=== PATIENT | male | born 1960 | race Caucasian/White ===

== ENCOUNTER → 2018-02-26 | Outpatient (CLI) | payer MEDICARE ==
--- NOTE | 2018-02-27 13:37 | RSPPFT ---
DATE OF PROCEDURE: 02/26/18 COMMENTS: Spirometry with FVC of 4.2 predicted 4.2, FEV1 of 3.0 predicted 3.4, FEV1/FVC ratio 71% predicted 80%. Air trapping is present with RV at 2.7 predicted 2.1. Airways resistance is increased to 3.9 predicted 1.2. IMPRESSION: On the basis of the above, patient has maintained FEV1/FVC ratio but increased airways resistance and air trapping implies that patient may have a mild obstructive lung defect.
== END ==
LOC: PHRSP 10:43
PROVIDERS: ATTEND Family Medicine
DX: R06.02 Shortness of breath (principal); R05 Cough
CPT/HCPCS: 94010; 94726; 94729